=== PATIENT | female | born 1960 | race Asian ===

== ENCOUNTER 2018-10-20 19:08 | Emergency (ER) | payer MEDICAID ==
[~2018-10-20] VITALS: Ht 149.9 cm; Wt 51.3 kg
[~2018-10-20 19:08] MED LIST: BEN20 PO; LIPI20 PO; PREMPRO PO; PRI20 PO; Q-PAP PO; RANITIDINE150 MG PO; VITAMIN D31000 IU PO; VITD PO; Z PO
[2018-10-20 19:33] VITALS: BP 136/70; Ht 149.9 cm; Wt 51.3 kg
== END 2018-10-20 21:58 | disposition home or self-care (01) ==
LOC: ED 19:08
DX: K64.8 Other hemorrhoids (principal); E78.00 Pure hypercholesterolemia, unspecified; F41.9 Anxiety disorder, unspecified

== ENCOUNTER 2020-05-27 20:36 | Emergency (ER) | payer MEDICAID, SELFPAY ==
[~2020-05-27] VITALS: Ht 154.9 cm; Wt 51.7 kg
[2020-05-27 20:38] VITALS: Ht 154.9 cm; Wt 51.7 kg
[2020-05-27 22:25] VITALS: BP 118/55
== END 2020-05-27 22:25 | disposition home or self-care (01) ==
LOC: ED 20:36
DX: B34.9 Viral infection, unspecified (principal); E78.00 Pure hypercholesterolemia, unspecified; Z20.828 Contact with and (suspected) exposure to other viral communicable diseases
CPT/HCPCS: U0003-CS